=== PATIENT | female | born 1975 | race Caucasian/White ===

== ENCOUNTER 2021-02-12 10:50 | Outpatient (REF) | payer MEDICAID, SELFPAY ==
--- NOTE | ~2021-02-12 | XR_ITS ---
EXAMINATION: XR LUMBOSACRAL SPINE WITH OBLIQUES CLINICAL INFORMATION: Pain. COMPARISON: None TECHNIQUE: AP, both oblique, and lateral views of the lumbar spine. Lateral view of the lumbosacral junction. FINDINGS: Normal lordosis is maintained. There is scoliosis, convex right, apex at L2-L3. The oblique imaging is demonstrating no convincing evidence for spondylolysis, but I cannot exclude spondylolysis at the level of L5 based on the imaging submitted. There is no listhesis here. The vertebral heights and disc heights are fairly well preserved. The SI joints are grossly patent. XR/XR lumbar spine 4V min IMPRESSION: Scoliosis, convex right. No listhesis or compression injury. Based on the oblique imaging, I cannot completely exclude an element of spondylolysis at L5.
== END 2021-02-12 10:51 | disposition home or self-care (01) ==
LOC: HO.XRAY 10:50
PROVIDERS: PCP Family Medicine; Visit Provider Psychiatry & Neurology Neurology
DX: M54.5 Low back pain (principal); M54.16 Radiculopathy, lumbar region
CPT/HCPCS: 72110

== ENCOUNTER → 2021-02-14 08:26 | Outpatient (BNVA) | payer MEDICAID, SELFPAY | PROVIDERS: PCP Family Medicine; Visit Provider Nurse Practitioner Family | DX: M79.7 Fibromyalgia (principal) | CPT/HCPCS: 99202 ==

== ENCOUNTER 2024-04-10 08:47 | Outpatient (REF) | payer OTHER, SELFPAY ==
--- NOTE | ~2024-04-10 | MR_ITS ---
EXAMINATION: MR BRAIN WITHOUT CONTRAST CLINICAL INFORMATION: Left-sided weakness for one year, facial numbness COMPARISON: None available. TECHNIQUE: MRI of the brain was obtained using routine sequences without contrast. FINDINGS: No acute intracranial hemorrhage or infarct. No midline shift or hydrocephalus. No acute extra-axial fluid collections. The osseous structures are unremarkable. The pituitary gland, pineal gland and remaining midline structures are unremarkable. No orbital pathology. The paranasal sinuses and mastoid air cells are clear. MR/MR head/brain wo con IMPRESSION: No acute intracranial abnormality. Electronically signed by: Manfred Weaver MD 04/21/2024 02:59 PM EDT
== END 2024-04-10 08:48 | disposition home or self-care (01) ==
LOC: HO.MRI 08:47
PROVIDERS: PCP Family Medicine; Visit Provider Registered Nurse
DX: G37.9 Demyelinating disease of central nervous system, unspecified (principal)
CPT/HCPCS: 70551

== ENCOUNTER 2025-02-15 09:32 | Outpatient (AMB) | payer OTHER, SELFPAY ==
--- NOTE | 2025-02-15 09:35 | A.OFFVIS_ITS ---
Intake Visit Reasons: 3 month FM Allergies No Known Allergies (No Known Allergies*) Allergy (Verified 02/15/25 09:50) Medication List - Last Reconciled 02/15/25 by Sierra Carias CNP buspirone 20 mg PO BID cyclobenzaprine 10 mg PO BID dextroamphetamine-amphetamine 20 mg (Adderall) 20 mg PO DAILY 30 days diclofenac sodium 50 mg PO DAILY doxepin 50 mg PO BEDTIME 90 days ondansetron HCl 8 mg PO Q8H propranolol 20 mg PO BID topiramate (Topamax) 200 mg PO BID triazolam 0.5 mg (2 x 0.25 mg) PO BEDTIME 30 days venlafaxine 75 mg PO DAILY HPI Comments Details: Having pain primarily to lower back, down left leg to mid thigh, and around abdomen, has trouble focusing because of pain. R foot feels like it is being squeezed. Went to [facility] ER yesterday for abdominal and lower back pain, had CT scan which apparently showed some arthritis and cyst on ovary. Report not available at this time. Saw spinal surgeon at [facility] a few weeks ago and had imaging in office, was apparently told pain is likely related to FM, no reports available at this time. Following with urogyn for prolapsed bladder and rectocele, started on progesterone cream and planning for surgery with hysterectomy, was told this should not be causing pain she is having. About a month ago, she was walking out of bedroom and passed out for not long. No tongue bite or incontinence. No confusion or increased fatigue afterward. She was does not remember how she felt before it happened, and no witnessed to episodes. Few mild headaches. Sleep was about the same. Lot of stress and anxiety. Waking up with pain throughout the night, describes as sheet of pain on legs. Touched R ankle which triggered some areas of R side of face to be numb. Says nerves are overactive, having trouble with emotions. Feels like nervous system gets excited quicker than it has in the past or more so than an average person. Does not feel psychologist med provider is helping. Also working with therapist, but has missed some appointments. Stress related to caring for her four children and grandson who she has had custody of since he was 8 months. Treated for Lyme after labs showed one positive IgM Ab band with doxycycline 100mg twice a day for 21 days by PCP in early 2024. Stopped duloxetine because she saw news about medication recall, more body pains after stopping. Side effects with gabapentin, makes her feel drunk. Headaches are controlled. She thinks intermittent numbness/tingling to face that has been happening for at least 6 months may be reaction to food. 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 She has some trouble holding onto things. No significant neck, arm, or back pain at this time. Ringing in L ear continues. Balance is okay, no falls. She reports few episodes of urinary incontinence in the past. Hx of fibromyalgia and chronic pain syndrome, was on daily narcotics. First started having headaches at age 18. Headaches may be triggered by any movement of the upper part of her body, back and neck, or reaching with her arms. They start with bitemporal pain that comes to the front of the head and minutes full-blown quite disabling. May also be triggered by noises, stress, and lack of sleep. Also gets a second type of headache which is bifrontal headache which occasionally puts her down. Uses Amerge 2.5mg, all 9 pills and feels that is not enough, and also uses 28 Fioricet a month, taking one every day, and finds that is not enough. At one point, she was diagnosed as having occipital neuralgia. She has generalized body pain as well as history of severe anxiety and depression. [facility] Medical History (Updated 02/15/25 @ 10:05 by Sierra Carias CNP) Neuropathy ADD (attention deficit disorder) Chronic fatigue syndrome Migraine Adenomyosis of uterus Degenerative disc disease, cervical Insomnia Depression Anxiety Review of Systems Const Denies chills, Denies daytime sleepiness, Reports difficulty sleeping, Reports fatigue, Denies fever(s), Denies frequent falls, Reports headache(s), Denies increased appetite, Denies poor appetite, Denies snoring, Denies weakness, Denies weight gain and Denies weight loss Eyes Denies loss of vision ENT Denies vertigo, Denies dizziness, Reports headache(s) and Reports neck pain Card Denies chest pain at rest, Denies chest pain with activity, Denies syncope, Denies leg edema, Denies palpitations, Denies dyspnea and Denies dyspnea on exertion Resp Denies cough, Denies dyspnea, Denies dyspnea on exertion and Denies snoring GI Denies abdominal pain, Denies constipation, Denies heartburn, Denies diarrhea and Denies nausea Denies urinary frequency, Denies urinary incontinence and Denies urinary urgency Musc Denies abnormal gait, Denies back pain, Reports myalgias, Reports arthralgias, Reports neck pain, Reports numbness and Reports tingling Neuro Denies abnormal gait, Denies vertigo, Denies dizziness, Denies syncope, Denies frequent falls, Reports headache(s), Denies lack of coordination, Denies loss of vision, Denies memory loss, Reports numbness, Denies Other visual disturbances, Denies restless legs, Denies seizure-like activity, Reports tingling, Denies paresthesias, Denies tremor(s) and Denies weakness Psych Reports anxiety, Reports depression, Denies auditory hallucinations, Denies memory loss and Denies visual hallucinations Endo Reports fatigue and Denies palpitations Physical Exam Const Other: General Appearance:? normal, in no acute distress. Heart:? S1, S2 normal, no murmurs. Lungs:? clear anteriorly and posteriorly. Musculoskeletal:? normal. Extremities:? no edema. Psych:? alert, oriented, cognitive function intact, cooperative with exam. Neuro Other: Abnormal Neurological Findings:?none.? Mental Status: alert and oriented X 3. Normal attention, orientation, memory, and affect. Cranial Nerves: Pupils are equal, round, and reactive to light. External ocular muscles are intact. Visual gan are full, no ptosis. Face is symmetrical, no facial weakness or droop. Facial sensations are normal. Tongue protrudes in midline. Palate elevates symmetrically. Shoulder shrugging is normal Motor Examination: Normal muscle tone, bulk and strength. No atrophy or fasciculations. No drift of the extended upper extremities. DTR 2+. Plantars are flexor. Sensory Exam: Normal light touch, temperature, pinprick, vibration, and joint- position sensations. Rhomberg sign is absent. Coordination: No ataxia. No titubation. Gait Exam: Within normal limits. Cerebellar Signs: [id number] is okay. Extrapyramidal System: No tremor, rigidity with normal facial expressions. No bradykinesia. No bradyphrenia. Normal arm swing and posture. No propulsion or retropulsion. Speech: Normal. Results Reviewed Results Reviewed: 04/10/2024 Brain MRI: WNL 11/26/23 NCV/EMG ALL Normal motor and sensory nerve conduction velocities in the upper extremities. Mild slowing nerve conduction study with axonal loss in peroneal nerves in the lower extremities. Normal EMG in the right C5-T1 and right L4-S1 innervated muscles. 11/20/22 Labs normal. Assessment & Plan Assessment & Plan (1) Syncope: Code(s): R55 - Syncope and collapse Category: Medical Qualifiers: Syncope type: unspecified Qualified Code(s): R55 - Syncope and collapse (2) Fibromyalgia: Code(s): M79.7 - Fibromyalgia Category: Medical Plan: Change venlafaxine tablet to venlafaxine ER 75mg capsule 1 capsule daily (3) Insomnia: Code(s): G47.00 - Insomnia, unspecified Category: Medical Qualifiers: Insomnia type: unspecified Qualified Code(s): G47.00 - Insomnia, unspecified Plan: Continue doxepin 50mg 1 capsule at bedtime Continue triazolam 0.25mg 2 tablets at bedtime as needed for sleep (4) Chronic fatigue syndrome: Code(s): G93.32 - Myalgic encephalomyelitis/chronic fatigue syndrome Category: Medical Plan: Continue Adderall 20mg 1 tablet daily (5) Migraine: Code(s): G43.909 - Migraine, unspecified, not intractable, without status migrainosus Category: Medical Qualifiers: Migraine type: unspecified Status migrainosus presence: without status migrainosus Intractability: not intractable Qualified Code(s): G43.909 - Migraine, unspecified, not intractable, without status migrainosus Plan: Continue topiramate 200mg 1 tablet twice a day Continue ondansetron 8mg 1 tablet as needed for nausea/vomiting (6) Spinal stenosis: Code(s): M48.00 - Spinal stenosis, site unspecified Category: Medical Qualifiers: Spinal region: unspecified Qualified Code(s): M48.00 - Spinal stenosis, site unspecified Plan: Will request records from [facility] and [facility]. Continue cyclobenzaprine 10mg 1 tablet twice a day Plan Meds tried for sleep: Trazodone 100mg (did not work), Ambien 10mg (did not work), lorazepam 2mg Meds tried for FM/pain: gabapentin, pregabalin, duloxetine, meloxicam, diclofenac, Savella, nortriptyline Meds tried for CFS: Concerta 36mg Orders: Orders EEG electroencephalogram Today R55 - Syncope and collapse ECG holter monitor 48 hour Today R55 - Syncope and collapse Medications: New venlafaxine ER 75 mg PO DAILY 90 caps 1RF 90 days Coding Level of Care Code Est Pt Level 4 (80466) Diagnoses Syncope, unspecified syncope type R55 Syncope type: unspecified Fibromyalgia M79.7 Insomnia, unspecified type G47.00 Insomnia type: unspecified Chronic fatigue syndrome G93.32 Migraine without status migrainosus, not intractable, unspecified migraine type G43.909 Migraine type: unspecified Status migrainosus presence: without status migrainosus Intractability: not intractable Spinal stenosis, unspecified spinal region M48.00 Spinal region: unspecified
--- OUTSIDE RECORDS SUMMARY | 2025-02-15 10:15 | XMS_ITS | Encounter Summary ---
Author Organization [facility] Address [address] [place] [address] [place] [address] Phone Care Team Providers Care Broadcast Program Director Name Role Phone Natalie Najera MD Primary Care Provider [phone] Gavin Clark DO Primary Care Provider [phone] Encounter Details Date Type Department Care Team (Late st Contact Info) Description 01/26/2025 Procedure Pass [facility] Endoscopy Admitting Dept Virtual Department [address] [place] [address] Social History Tobacco Use Types Packs/Day Years Used Date Smoking Tobacco: Never Smokeless Tobacco: Never Alcohol Use Standard Drinks/Week Comments Never 0 (1 standard drink = 0.6 oz pur e alcohol) Education Answer Date Recorded Are you interested in more education? Not on ale e 11/01/2022 Are you concerned about learning? Not on file 11/01/2022 No 11/01/2022 No 11/01/2022 Digital Access Answer Date Recorded No 11/30/2022 No 11/30/2022 Reliable internet access at home? Not on file 11/30/2022 Device with a working camera? Not on file Intimate Partner Violence Answer Date R ecorded Are you denied basic needs s uch as food, clothing, or medical care? No 01/26/2025 In the past 12 months have y ou been in a relationship with a person who hurts, threatens, or tries to control you? No 01/26/2025 Are you denied basic needs s uch as food, clothing, or medical care? No 01/26/2025 In the past 12 months have y ou been in a relationship with a person who hurts, threatens, or tries to control you? No 01/26/2025 Comments No Sex and Gender Information Value Date Recorded Sex Assigned at Not on file Legal Sex Female 1:16 PM EDT Gender Identity Not on file Sexual Orientation Not on file documented as of this encounter Plan of Treatment Not on file documented as of this encounter Visit Diagnoses Not on filedocumented in this encounter Care Teams Broadcast Program Director Relationship Specialty Start Date End Date Natalie Najera MD [address] [place] [address] [email or web address] PCP - General Family Medicine [birth year]02/13 Gavin Clark DO [address] [address] PCP - General Family Medicine 02/14/25 documented as of this encounter Additional Source Comments The information contained in this document represents components of the legal health record. It is not the complete legal health record.[facility]
--- OUTSIDE RECORDS SUMMARY | 2025-02-15 10:15 | XMS_ITS | Clinical Summary ---
Author Organization [employer] Address [address] [place] [address] Care Team Providers Care Net Ui Developer Name Role Phone Jodie Carmen Unavailable Unavailable Social History Tobacco Use Types Packs/Day Years Used Date Smoking Tobacco: Never Assessed Housing Stability Answer Date Recorded What is your housing situation today? I am not s ure 06/13/[address] you li ve. Do you have problems with any of the following? None of the above 06/13/2023 Food Insecurity Answer Date Recorded Within the past 12 months, y ou worried that your food would run out before you got money to buy more: Often true 06/13/2023 Within the past 12 months,th e food you bought just didn't last and you didn't have enough money to get more: Often true 02/2023 Transportation Answer Date Recorded In the past 12 months, has l ack of transportation kept you from medical appts, meetings, work or from getting things needed for daily living? No 06/13/2023 Intimate Partner Violence Answer Date R ecorded Within the last year, have y ou been afraid of your partner or ex-partner? 1 06/13/2023 Within the last year, have y ou been humiliated or emotionally abused in other ways by your partner or ex-partner? 1 Within the last year, have y ou been kicked, hit, slapped, or otherwise physically hurt by your partner or ex-partner? 2 06/13/2023 Within the last year, have y ou been raped or forced to have any kind of sexual activity by your partner or ex-partner? 2 06/13/2023 Utilities Answer Date Recorded In the past 12 months, has t he electric, gas, oil or water company threatened to shut off services in your home? No 06/13/2023 Comments Unknown Sex and Gender Information Value Date Recorded Sex Assigned at Not on file Legal Sex Female 11:11 AM EST Gender Identity Female 06/04/2023 11:13 AM EST Sexual Orientation Not on file Plan of Treatment Health Maintenance Due Date Last Done Comments CT Colonography 1975 Colonoscopy 1975 Colorectal Cancer Screening 1975 Depression Screening 1975 FIT DNA/Cologuard 1975 FIT 1975 FOBT 1975 Sigmoidoscopy 1975 Disability Screening 1975 Alcohol/Substance Use Screening 1987 Tobacco Screening 1987 Family Planning (PISQ) 1990 Hepatitis B Vaccines (1 of 3 - 19+ 3-dose series) 1994 Pap Smear 1996 Cervical Cancer Screening 2005 HPV/Cotest 2005 Mammogram 2015 COVID-19 Vaccine (3 - 2023-2 5 season) 2024 12/16/2020, 11/17/2020 Influenza Vaccine (#1) 2025 , 04/27/2020, 08/12/2019 Zoster Vaccines (1 of 2) 2025 DTaP/Tdap/Td Vaccines (2 - T d or Tdap) 09/13/2027 09/12/2017 RSV Patients and Patients Aged 60 years or older (1 - 1-dose 75+ series) 2050 HIB Vaccines Aged Out No longer eligi ble based on patient's age to complete this topic HPV Vaccines Aged Out No longer eligi ble based on patient's age to complete this topic Hepatitis A Vaccines Aged Out No long er eligible based on patient's age to complete this topic IPV Vaccines Aged Out No longer eligi ble based on patient's age to complete this topic Meningococcal B Vaccine Aged Out No l onger eligible based on patient's age to complete this topic Meningococcal Vaccine Aged Out No estefany doni eligible based on patient's age to complete this topic Pneumococcal Vaccine: Pediatrics (0 to 5 Years) and At-Risk Patients (6 to 49) Years Aged Out No longer eligible b ased on patient's age to complete this topic RSV under 20 months Aged Out No longe r eligible based on patient's age to complete this topic Rotavirus Vaccines Aged Out No longer eligible based on patient's age to complete this topic Care Teams Net Ui Developer Relationship Specialty Start Date End Date Jodie Carmen Community Health Worker 06/05/23
== END 2025-02-15 10:31 | disposition home or self-care (01) ==
LOC: HO.HSM 09:33
PROVIDERS: PCP Family Medicine; Referring Provider Family Medicine; Visit Provider Registered Nurse
DX: R55 Syncope and collapse (principal); M79.7 Fibromyalgia; G47.00 Insomnia, unspecified; G93.32 Myalgic encephalomyelitis/chronic fatigue syndrome; G43.909 Migraine, unspecified, not intractable, without status migrainosus; M48.00 Spinal stenosis, site unspecified
CPT/HCPCS: 99214

== ENCOUNTER → 2025-02-15 09:32 | Outpatient (BNVA) | payer OTHER, SELFPAY | PROVIDERS: PCP Family Medicine; Referring Provider Family Medicine; Visit Provider Registered Nurse | DX: R55 Syncope and collapse (principal); M79.7 Fibromyalgia; G47.00 Insomnia, unspecified; G93.32 Myalgic encephalomyelitis/chronic fatigue syndrome; G43.909 Migraine, unspecified, not intractable, without status migrainosus; M48.00 Spinal stenosis, site unspecified | CPT/HCPCS: 99212 ==

== ENCOUNTER → 2025-02-18 07:53 | Outpatient (REF) | payer OTHER, SELFPAY ==
--- NOTE | 2025-02-18 07:55 | HM_ITS ---
* Total monitoring time 2 days. * Underlying rhythm is sinus with an average rate of 77/Min. * Rare supraventricular ectopy. * Rare ventricular ectopy. * No significant pauses or high-grade AV blocks. * No patient markers or diary events. MTDD
--- OUTSIDE RECORDS SUMMARY | 2025-02-18 07:55 | XMS_ITS | Clinical Summary ---
Author Organization [employer] Address [address] [place] [address] Care Team Providers Care Head Greenskeeper Name Role Phone Jodie Carmen Unavailable Unavailable [...] age to complete this topic Care Teams Head Greenskeeper Relationship Specialty Start Date End Date Jodie Carmen Community Health Worker 06/05/23
--- OUTSIDE RECORDS SUMMARY | 2025-02-18 07:55 | XMS_ITS | Encounter Summary ---
Author Organization [facility] Address [address] [place] [address] Phone Care Team Providers Care Infrastructure Administrator Name Role Phone Natalie Najera MD Primary Care Provider [phone] Gavin Clark DO Primary Care Provider [phone] Encounter Details Date Type Department Care Team (Late st Contact Info) Description 01/26/2025 Procedure Pass [facility] Endoscopy Admitting Dept Virtual Department [address] [place] [place] [address] Social History Tobacco Use Types Packs/Day Years [...] on filedocumented in this encounter Care Teams Infrastructure Administrator Relationship Specialty Start Date End Date Natalie Najera MD [address] [place] [address] [email or web address] PCP - General Family Medicine 12/30[birth year]02/13 Gavin Clark DO [address] [address] PCP - General Family Medicine 02/14/25 documented as of this encounter Additional Source Comments The information contained in this document represents components of the legal health record. It is not the complete legal health record.[facility]
== END ==
LOC: HO.CARD 07:53
PROVIDERS: PCP Family Medicine; Visit Provider Registered Nurse
DX: R55 Syncope and collapse (principal)
CPT/HCPCS: 93225

== ENCOUNTER → 2025-02-18 07:55 | Outpatient (BNV) | payer OTHER, SELFPAY | PROVIDERS: PCP Family Medicine; Visit Provider Internal Medicine | DX: I47.10 Supraventricular tachycardia, unspecified (principal); I49.3 Ventricular premature depolarization | CPT/HCPCS: 93227 ==

== ENCOUNTER 2025-02-28 11:15 | Outpatient (REF) | payer OTHER, SELFPAY ==
--- OUTSIDE RECORDS SUMMARY | 2025-02-28 12:39 | XMS_ITS | Clinical Summary ---
Author Organization [employer] Address [address] [place] [address] Care Team Providers Care Combiner Operator Name Role Phone Jodie Carmen Unavailable Unavailable [...] age to complete this topic Care Teams Combiner Operator Relationship Specialty Start Date End Date Jodie Carmen Community Health Worker 06/05/23
--- OUTSIDE RECORDS SUMMARY | 2025-02-28 12:39 | XMS_ITS | Encounter Summary ---
Author Organization [facility] Address [address] [place] [address] Phone Care Team Providers Care Lumber Loader Name Role Phone Natalie Najera MD Primary Care Provider [phone] Gavin Clark DO Primary Care Provider [phone] Encounter Details Date Type Department Care Team (Late st Contact Info) Description 01/26/2025 Procedure Pass [facility] Endoscopy Admitting Dept Virtual Department [address] [place] [phone] Social History Tobacco Use Types Packs/Day Years [...] on filedocumented in this encounter Care Teams Lumber Loader Relationship Specialty Start Date End Date Natalie Najera MD [address] [place] [address] [email or web address] PCP - General Family Medicine 12/30/[birth year]02/13 Gavin Clark DO [address] [address] PCP - General Family Medicine 02/14/25 documented as of this encounter Additional Source Comments The information contained in this document represents components of the legal health record. It is not the complete legal health record.[facility]
--- NOTE | 2025-02-28 12:48 | EEG_ITS ---
Reason: Syncope/ collapse Photic stimulation: Completed Hyperventilation: Performed good effort Behavioral state: cooperative but tense State of Consciousness: awake Skull defect: No Sedation: No Handedness: Left Medication: buspirone, cyclobenzaprine, dextroamphetamine-amphetamine 20 mg (Adderall), diclofenac sodium, doxepin, ondansetron, propranolol, topiramate, triazolam, venlafaxine Medical History: Neuropathy, ADD (attention deficit disorder), Chronic fatigue syndrome, Migraine, Adenomyosis of uterus, Degenerative disc disease, cervical, Insomnia, Depression, Anxiety- pt had a syncopal episode with no warning, no confusion, no biting of tongue and no incontinence noted- duration was a few seconds- pt c/o frequent headaches and intermittent numbness of face Description: This is a routine waking EEG using the 10-20 electrode placement system. The waking background activity consists of low-voltage fast frequency seen diffusely intermixed with high-voltage posterior 10 hertz alpha frequency.? Photic stimulation is without activation.? Hyperventilation produces no change in the background activity. No focal, lateralizing or paroxysmal discharges are seen. Impression: This waking EEG is within normal limits [facility]
== END 2025-02-28 11:16 | disposition home or self-care (01) ==
LOC: HO.NEURO 11:15
PROVIDERS: Visit Provider Psychiatry & Neurology Neurology
DX: R55 Syncope and collapse (principal)
CPT/HCPCS: 95816

== ENCOUNTER → 2025-02-28 12:48 | Outpatient (BNV) | payer OTHER, SELFPAY | PROVIDERS: Visit Provider Psychiatry & Neurology Neurology | DX: R55 Syncope and collapse (principal) | CPT/HCPCS: 95816 ==